=== PATIENT | male | born 1965 | race Caucasian/White ===

== ENCOUNTER 2020-05-30 07:35 | Observation (INO) ==
[2020-05-30 07:44] VITALS: BMI 39.5
[2020-05-30] MEDS ORDERED: ZESTRIL TAB 20 MG PO ONE (08:11)
[2020-05-30] MEDS ORDERED: ZESTRIL TAB 20 MG ONE (08:13)
[2020-05-30 08:33] LABS: BASOPHILS % (AUTO) 0.6 % (0.2-1.0); EOSINOPHILS # (AUTO) 0.2 x10^3/uL (0.0-0.2); EOSINOPHILS % (AUTO) 2.4 % (0.9-2.9); HEMATOCRIT 41.9 % (42.0-54.0); HEMOGLOBIN 14.2 g/dL (13.5-18.0); LYMPHOCYTES # (AUTO) 0.7 X10^3/uL (1.3-2.9); LYMPHOCYTES % (AUTO) 9.8 % (21.0-51.0); MEAN CORPUSCULAR HEMOGLOBIN 27.4 pg (27.0-34.0); MEAN CORPUSCULAR VOLUME 80.7 fL (80.0-100.0); MEAN PLATELET VOLUME 7.4 fL (7.4-11.0); MONOCYTES # (AUTO) 0.3 x10^3/uL (0.3-0.8); MONOCYTES % (AUTO) 3.6 % (0.0-13.0); NEUTROPHILS # (AUTO) 6.3 x10^3/uL (2.2-4.8); NEUTROPHILS % (AUTO) 83.6 % (42.0-75.0); PLATELET COUNT 182 X10^3/uL (150.0-450.0); RED CELL DISTRIBUTION WIDTH 13.6 % (11.6-16.5); WHITE BLOOD COUNT 7.5 X10^3/uL (3.6-10.0)
--- NOTE | 2020-05-30 08:36 | RAD ---
CHEST, 1 VIEWHISTORY: Shortness of breath with cough and body achesStudy: Single view of the chest.Comparison:NoneFindings:Cardiomegaly.No focal consolidations, pleural effusions or pneumothorax. Osseous structures demonstrate no acute abnormality.IMPRESSION:1. No acute cardiopulmonary process.Electronically signed by: KAYLA CANTU (May 30, 2020 08:34:48)
[2020-05-30 08:49] LABS: BLOOD UREA NITROGEN 11 mg/dL (7-18); CARBON DIOXIDE 26.8 mmol/L (21-32); CHLORIDE 105 mmol/L (98-107); COR NA(FOR HYPERGLY) 141 mmol/L (136-145); CREATININE 1.34 mg/dL (0.70-1.30); SODIUM 141 mmol/L (136-145); TROPONIN I < 0.02 ng/mL (0-1.5); eGFR NON BLACK RACES 59 (>60)
[2020-05-30 08:52] LABS: LACTIC ACID 1.2 mmol/L (0.4-2.0)
[2020-05-30 08:53] LABS: ALANINE AMINOTRANSFERASE 37 Units/L (12-78); ALBUMIN 3.5 g/dL (3.4-5.0); ALKALINE PHOSPHATASE 96 Units/L (46-116); ASPARTATE AMINO TRANSFERASE 17 Units/L (15-37); CKMB % 1.5 % (<4); CREATINE KINASE 66 Units/L (39-308); CREATINE KINASE MB < 1.0 ng/mL (0-4.0); TOTAL PROTEIN 7.1 g/dL (6.4-8.2)
--- NOTE | 2020-05-30 09:19 | DR.SOBA ---
HPI Time Seen Time Seen by Provider: 05/30/20 08:10 Primary Care Physician Primary Care Physician: Minesh Kendrick Chief Complaint:: Shortness of breath , body aches, cough, unable to sleep COVID-19 Coronavirus risk:travel/contact w/high risk person: Yes Has patient experienced Coronavirus symptoms: Yes Coronavirus symptoms experienced: Fever, Coughing and Shortness of Breath Source History Provided: Patient Mode of Arrival Mode of Arrival: Ambulatory Timing Onset of Chief Complaint: 05/28/20 PMH PMH Past Medical History: Yes Past Medical History: Dyslipidemia and Hypertension Past Surgical History: Yes Surgical History: Cholecystectomy and Neurosurgery Past Surgical History Comment: hernia repair, shoulder surgery Family History History of Family Medical Conditions: Yes Family Medical History: Hypertension Social History Does patient currently use any type of tobacco product: Yes Have you used tobacco products in the last 12 months: Yes Type of Tobacco Use: Smokeless Does any household member use tobacco: No Alcohol Use: None Lives With: Spouse Lives Where: Home Travel Risk Coronavirus risk:travel/contact w/high risk person: Yes Has patient experienced Coronavirus symptoms: Yes Coronavirus symptoms experienced: Fever, Coughing and Shortness of Breath Infectious screening In the last 2 months have you had wt loss of >10#?: NO Have you had fever, night sweats or hemotysis?: No Have you traveled outside the country in the last 6 months?: No Isolation: Standard ROS Review of Systems Constitutional: See HPI, Chills, Malaise, Weakness and Fatigue Eyes: No Symptoms Reported and See HPI; negative Blurred Vision and Diplopia ENTM: See HPI and Nose Congestion; negative Ear Pain, Nose Discharge and Throat Pain Respiratoy: See HPI, Non-Productive Cough, Short of Breath and Wheezing Cardiovascular: See HPI, Chest Pain, Edema and Palpitations Gastrointestinal/Abdominal: See HPI, Abdominal Pain, Constipation, Nausea and Vomiting; negative Diarrhea Genitourinary: No Symptoms Reported, See HPI, Dysuria, Frequency and Hematuria Neurological: See HPI, Headache and Weakness; negative Dizziness Musculoskeletal: See HPI, Back Pain and Muscle Pain Integumentary: No Symptoms Reported and See HPI; negative Change in Color and Juandice Hematologic/Lymphatic: No Symptoms Reported and See HPI; negative Easy Bruising and Swollen Glands Endocrine: No Symptoms Reported and See HPI; negative Increased Thirst, Increased Urine and Decreased Appetite Psychiatric: No Symptoms Reported and See HPI All Other Systems: Reviewed and Negative PE Vital Signs Vitals: Temperature 99 F Pulse Rate 92 Respiratory Rate 27 Blood Pressure 143/66 O2 Sat by Pulse Oximetry 96 General Limitations: No Limitations General Appearance: Alert and In No Apparent Distress Head Head Exam: Normal Inspection and Atraumatic Eyes Eye exam: Normal Appearance and PERRL; negative Scleral Icterus and Conjunctival Injection ENT ENT Exam: Normal Exam, Normal Oropharynx, Normal External Ear Exam and TM's Normal Bilaterally Neck Neck Exam: Normal Inspection and Trachea Midline; negative Tenderness and Lymphadenopathy Chest Chest Inspection: Normal Inspection and Symmetric Chest Wall Rise; negative Tenderness Respiratory Respiratory Exam: Normal Lung Sounds Bilat and Respiratory Distress; negative Accessory Muscle Use and Chest Wall Tenderness Respiratory Exam: Bilateral: Wheezing and Bilateral: Rhonchi and Lower: Wheezing Cardiovascular Cardiovascular Exam: Normal Rhythm, Tachycardia and Normal Heart Sounds; negat ever Systolic Murmur and Diastolic Murmur Abdominal Exam Abdominal Exam: Normal Inspection, Normal Bowel Sounds and Soft; negative Tenderness Extremities Extremities Exam: Normal Inspection and Normal Capillary Refill; negative Tenderness, Edema and Calf Tenderness Back Back Exam: Normal Inspection and Tenderness; negative (R) CVA Tenderness and (L) CVA Tenderness Neurologic Neurological Exam: Alert, Oriented X3 and CN II-XII Intact; negative Motor Sensory Deficit Psychiatric Psychiatric Exam: Normal Affect and Normal Mood Skin Skin Exam: Warm, Dry, Intact and Normal Color MDM Differential Diagnosis Differential Diagnosis: Bronchitis, CHF, Hyponatremia, Mycardial Infarction, Pneumonia, Pneumothorax, Pulmonary embolism, Respiratory Insufficiency and URI COURSE Treatment Treatment: SEE ORDERS. Education/Counseling Education/Counseling: Patient Educated On: Diagnosis ROR Labs Reviewed Laboratory Results Reviewed?: Yes Result Diagrams: 05/30/20 08:18 05/30/20 08:18 Laboratory: WBC 7.5 X10^3/uL (3.6-10.0) 05/30/20 08:18 RBC 5.20 X10^6/uL (4.7-6.0) 05/30/20 08:18 Hgb 14.2 g/dL (13.5-18.0) 05/30/20 08:18 Hct 41.9 % (42.0-54.0) L 05/30/20 08:18 MCV 80.7 fL (80.0-100.0) 05/30/20 08:18 MCH 27.4 pg (27.0-34.0) 05/30/20 08:18 MCHC 34.0 g/dL (33.0-35.0) 05/30/20 08:18 RDW 13.6 % (11.6-16.5) 05/30/20 08:18 Plt Count 182 X10^3/uL (150.0-450.0) 05/30/20 08:18 MPV 7.4 fL (7.4-11.0) 05/30/20 08:18 Neut % (Auto) 83.6 % (42.0-75.0) H 05/30/20 08:18 Lymph % (Auto) 9.8 % (21.0-51.0) L 05/30/20 08:18 [place] % (Auto) 3.6 % (0.0-13.0) 05/30/20 08:18 Eos % (Auto) 2.4 % (0.9-2.9) 05/30/20 08:18 Baso % (Auto) 0.6 % (0.2-1.0) 05/30/20 08:18 Neut # (Auto) 6.3 x10^3/uL (2.2-4.8) H 05/30/20 08:18 Lymph # (Auto) 0.7 X10^3/uL (1.3-2.9) L 05/30/20 08:18 [place] # (Auto) 0.3 x10^3/uL (0.3-0.8) 05/30/20 08:18 Eos # (Auto) 0.2 x10^3/uL (0.0-0.2) 05/30/20 08:18 Baso # (Auto) 0.0 X10^3/uL (0.0-0.1) 05/30/20 08:18 Absolute Nucleated RBC 0.0 /100WBC 05/30/20 08:18 D-Dimer 709 ng/mL (0-400) H* 05/30/20 08:18 Sample Site Rrad 05/30/20 09:20 ABG pH 7.440 (7.35-7.45) 05/30/20 09:20 ABG pCO2 43.0 mmHg (35.0-45.0) 05/30/20 09:20 ABG pO2 83.0 mmHg (80.0-100.0) 05/30/20 09:20 ABG HCO3 29.2 mmol/L (22-26) H 05/30/20 09:20 ABG O2 Saturation 97.0 % (90-100) 05/30/20 09:20 ABG Base Excess 4.5 mmol/L (-2.0-2.0) H 05/30/20 09:20 Dheeraj Test Pos 05/30/20 09:20 A-a Gradient 13.0 mmHg 05/30/20 09:20 FiO2 21.0 05/30/20 09:20 Blood Gas Comments Lorena well-sd 05/30/20 09:20 Sodium 141 mmol/L (136-145) 05/30/20 08:18 Corrected Sodium 141 mmol/L (136-145) 05/30/20 08:18 Potassium 3.5 mmol/L (3.5-5.1) 05/30/20 08:18 Chloride 105 mmol/L (98-107) 05/30/20 08:18 Carbon Dioxide 26.8 mmol/L (21-32) 05/30/20 08:18 BUN 11 mg/dL (7-18) 05/30/20 08:18 Creatinine 1.34 mg/dL (0.70-1.30) H 05/30/20 08:18 Est GFR (MDRD) Af Amer > 60 (>60) 05/30/20 08:18 Est GFR (MDRD) Non-Af 59 (>60) 05/30/20 08:18 Glucose 114 mg/dL (65-99) H 05/30/20 08:18 Lactic Acid 1.2 mmol/L (0.4-2.0) 05/30/20 08:18 Calcium 8.0 mg/dL (8.5-10.1) L 05/30/20 08:18 Corrected Calcium TNP 05/30/20 08:18 Ferritin 337 ng/mL (26-388) 05/30/20 08:18 Total Bilirubin 0.60 mg/dL (0.2-1.0) 05/30/20 08:18 AST 17 Units/L (15-37) 05/30/20 08:18 ALT 37 Units/L (12-78) 05/30/20 08:18 Alkaline Phosphatase 96 Units/L (46-116) 05/30/20 08:18 Creatine Kinase 66 Units/L (39-308) 05/30/20 08:18 CK-MB (CK-2) < 1.0 ng/mL (0-4.0) 05/30/20 08:18 CK/CKMB % Calc 1.5 % (<4) 05/30/20 08:18 Troponin I < 0.02 ng/mL (0-1.5) 05/30/20 08:18 C-Reactive Protein 12.70 mg/L (0-3.0) H 05/30/20 08:18 B-Natriuretic Peptide < 5.0 pg/mL (0-79) 05/30/20 08:18 Total Protein 7.1 g/dL (6.4-8.2) 05/30/20 08:18 Albumin 3.5 g/dL (3.4-5.0) 05/30/20 08:18 Globulin 3.6 g/dL (2.5-4.5) 05/30/20 08:18 Albumin/Globulin Ratio 1.0 Ratio (1.1-2.1) L 05/30/20 08:18 SARS-CoV-2 (PCR) Negative (NEGATIVE) 05/30/20 10:52 XRAY XRAY Interpreted by: Radiologist (REPORT NOTED AND DISCUSSED WITH PATIENT.) EKG Rate: 87 Avery: Normal Rhythm: NSR Block: None Hypertrophy: None ST: Old, Inf, Ant and Infarct Opioid Opioid Risk Tool Age ([place] box if 16-45): No History of Preadolescent Sexual Abuse: No Total: 0 Total Score Risk Category: Low Risk Copyright: Sam GARRIDO predicting aberrant behaviors Diagnosis Discharge Problem: Pneumonia, Acute respiratory distress Instructions Forms: Excuse From Work Precautions for COVID19 Patient Portal Social Distancing
[2020-05-30] MEDS ORDERED: SOLU-Medrol 125 MG VIAL IVP ONE (09:20)
[2020-05-30] MEDS ORDERED: DUONEB 0.5 MG/3 MG (3 mL) NEB ONE ×2 (09:20→10:14)
[2020-05-30] MEDS ORDERED: SOLU-Medrol 125 MG VIAL ONE (09:22)
[2020-05-30 09:30] LABS: ABG ALLEN TEST POS; ABG BASE EXCESS 4.5 mmol/L (-2.0-2.0); ABG HCO3 29.2 mmol/L (22-26)
--- NOTE | 2020-05-30 10:08 | CT ---
CTA CHESTCLINICAL INDICATION: Shortness of breath and body achesPROCEDURE: Non gated axial images of the chest were obtained with intravenous contrast according to pulmonary embolism protocol. MIPS were reconstructed Dose reduction techniques including Automated Exposure Control (AEC) and adjustment of mA and kV were utlized.COMPARISON:NoneFINDINGS:No evidence of a pulmonary embolism to the level of the segmental pulmonary arteries.The heart is normal in size . No pericardial effusion . No suspicious mediastinal or axillary lymph nodes. Subtle ground-glass in the lungs bilaterally. No focal consolidations, pleural effusions or pneumothorax .Airways are patent . No suspicious pulmonary nodules or masses .Limited images of the upper abdomen are unremarkable.No aggressive osseous lesions.IMPRESSION:1. No evidence of pulmonary embolism.2. Subtle bilateral ground-glass for which early atypical infection include viral etiologies cannot be excludedElectronically signed by: KAYLA CANTU (May 30, 2020 10:06:34)
[2020-05-30] MEDS ORDERED: ROCEPHIN VIAL 1 GRAM 1 G in NS 100 ML IV + SPIKE MINIBAG* 100 ML IV ONE (11:14)
[2020-05-30] MEDS ORDERED: NS 100 ML IV + SPIKE MINIBAG* 100 ML IV ONE (11:16)
[2020-05-30] MEDS ORDERED: ROCEPHIN VIAL 1 GRAM ONE (11:16)
[2020-05-30] MEDS ORDERED: NS 250 ML IV 250 ML IV ONE (11:16)
[2020-05-30] MEDS ORDERED: TUSSIONEX PENNKINETIC SUSP PO PRN (15:19)
[2020-05-30] MEDS: FORTAZ or TAZICEF VIAL INJ 1 G in NS 100 ML IV + SPIKE MINIBAG* 100 ML IV SCH ×3 (16:07→21:36)
[2020-05-30] MEDS: NS 1/2 1000 ML IV 1,000 ML IV SCH (16:07)
[2020-05-30] MEDS: LEVAQUIN PREMIX IV 750 MG 750 MG/150 ML BAG IV SCH (16:08)
[2020-05-30] MEDS ORDERED: NS 1/2 1000 ML IV 1,000 ML IV ONE (16:12)
[2020-05-30] MEDS: ROBITUSSIN DM PO SCH ×3 (16:23→21:36)
[2020-05-30] MEDS: DUONEB 0.5 MG/3 MG (3 mL) NEB SCH ×2 (16:30→20:15)
[2020-05-30] MEDS ORDERED: DUONEB 0.5 MG/3 MG (3 mL) NEB SCH (17:00)
[2020-05-30] MEDS: PULMICORT NEB TX 0.5 MG NEB SCH (20:15)
[2020-05-30] MEDS ORDERED: TYLENOL 325 MG TAB PO ONE (20:43)
[2020-05-30] MEDS: TYLENOL 325 MG TAB PO PRN (21:36)
[2020-05-31 04:29] LABS: ABG BASE EXCESS 2.4 mmol/L (-2.0-2.0); ABG HCO3 27.2 mmol/L (22-26)
[2020-05-31 04:30] LABS: ABG ALLEN TEST POS
[2020-05-31] MEDS: FORTAZ or TAZICEF VIAL INJ 1 G in NS 100 ML IV + SPIKE MINIBAG* 100 ML IV SCH ×3 (05:06→21:21)
[2020-05-31 05:13] LABS: BASOPHILS % (AUTO) 0.1 % (0.2-1.0); HEMATOCRIT 39.2 % (42.0-54.0); HEMOGLOBIN 13.3 g/dL (13.5-18.0); LYMPHOCYTES # (AUTO) 0.5 X10^3/uL (1.3-2.9); LYMPHOCYTES % (AUTO) 5.6 % (21.0-51.0); MEAN CORPUSCULAR HEMOGLOBIN 27.6 pg (27.0-34.0); MEAN CORPUSCULAR HGB CONC 33.9 g/dL (33.0-35.0); MEAN CORPUSCULAR VOLUME 81.3 fL (80.0-100.0); MONOCYTES # (AUTO) 0.3 x10^3/uL (0.3-0.8); MONOCYTES % (AUTO) 3.3 % (0.0-13.0); PLATELET COUNT 195 X10^3/uL (150.0-450.0); RED BLOOD COUNT 4.82 X10^6/uL (4.7-6.0); RED CELL DISTRIBUTION WIDTH 13.5 % (11.6-16.5); WHITE BLOOD COUNT 9.9 X10^3/uL (3.6-10.0)
[2020-05-31 05:22] LABS: ALANINE AMINOTRANSFERASE 29 Units/L (12-78); ALBUMIN 3.3 g/dL (3.4-5.0); ALKALINE PHOSPHATASE 81 Units/L (46-116); ASPARTATE AMINO TRANSFERASE 8 Units/L (15-37); BLOOD UREA NITROGEN 17 mg/dL (7-18); CALCIUM 8.2 mg/dL (8.5-10.1); CARBON DIOXIDE 26.9 mmol/L (21-32); CHLORIDE 105 mmol/L (98-107); COR CA(FOR HYPOALB) 8.8 mg/dL (8.5-10.1); COR NA(FOR HYPERGLY) 141 mmol/L (136-145); CREATININE 1.22 mg/dL (0.70-1.30); SODIUM 140 mmol/L (136-145); eGFR NON BLACK RACES > 60 (>60)
[2020-05-31 06:04] LABS: BAND NEUTROPHILS % 2 % (0-10); PLATELET MORPHOLOGY COMMENT NORMAL (NORMAL)
--- NOTE | 2020-05-31 06:24 | RAD ---
HISTORYShortness of breathSTUDYChest AP [id number]/2020FINDINGSThe heart is enlarged. No definite congestive heart failure is noted. The lungs are hypoinflated. Perihilar subsegmental atelectasis is present on the right. No pleural effusions are identified. Bony thorax is unremarkable.IMPRESSIONCardiomegaly without congestive heart failureNo definite infiltratesPerihilar subsegmental atelectasis on the rightElectronically signed by: NATHAN HADDAD (May 31, 2020 06:23:07)
[2020-05-31] MEDS: NS 1/2 1000 ML IV 1,000 ML IV SCH ×3 (06:34→21:35)
[2020-05-31] MEDS: DUONEB 0.5 MG/3 MG (3 mL) NEB SCH ×2 (09:05→12:27)
[2020-05-31] MEDS: PULMICORT NEB TX 0.5 MG NEB SCH ×2 (09:05→20:30)
[2020-05-31] MEDS: VSL#3 PO SCH (09:25)
[2020-05-31] MEDS: ROBITUSSIN DM PO SCH ×4 (09:25→21:21)
[2020-05-31] MEDS: LEVAQUIN PREMIX IV 750 MG 750 MG/150 ML BAG IV SCH (09:25)
[2020-05-31] MEDS: LOVENOX INJ 40 MG SYR SC SCH (10:43)
[2020-05-31] MEDS ORDERED: NS 1/2 1000 ML IV 1,000 ML IV ONE ×2 (16:07→20:56)
[2020-05-31] MEDS: TYLENOL 325 MG TAB PO PRN (16:15)
[2020-05-31] MEDS ORDERED: XOPENEX 1.25 MG/3 ML NEBULE NEB ONE (16:24)
[2020-05-31] MEDS: XOPENEX 1.25 MG/3 ML NEBULE NEB SCH (17:00)
--- NOTE | 2020-05-31 22:10 | DR.H&P ---
H&P - History & Physical for Day of: H&P Date: 05/30/20 - Chief Complaint Chief Complaint: SOB, COUGH, FEVER, BODY ACHES, INABILITY TO SLEEP - History of Present Illness History of Present Illness: IS A 54 YEAR OLD PATIENT OF . HE PRESENTED TO THE ER WITH COMPLAINTS OF SHORTNESS OF BREATH, BODY ACHES, COUGH, FEVER, AND INABILITY TO SLEEP. SYMPTOMS REPORTEDLY STARTED THREE DAYS PRIOR AND HAVE PROGRESSIVELY GOTTEN WORSE. HIS PMH INCLUDES: DYSLIPIDEMIA, HYPERTENSION, CHOLECYSTECTOMY, NEUROSURGERY, HERNIA REPAIR, AND SHOULDER SURGERY. ON ARRIVAL TO THE ER, VITALS WERE: 99.0-91-20-97%-172/87. LABS WERE OBTAINED. ABNORMAL LAB VALUES INCLUDE THE FOLLOWING: HCT 41.9, D-DIMER 709, CREATININE 1.34, GLUCOSE 114, CALCIUM 8.0, CRP 12.70. CARDIAC ENZYMES WIHTIN NORMAL LIMITS. ABG OBTAINED AND REVEALED: PH 7.440, PC02 43.0, P02 83.0, HC03 29.2, 02 SATURATION 97.0, BASE EXCESS 4.5. COVID RAPID SWAB WAS NEGATIVE. A SEND OUT SWAB WAS COLLECTED. BLOOD AND SPUTUM CULTURES WERE SENT OUT. A CHEST XRAY WAS OBTAINED AND REVEALED: NO ACUTE CARDIOPULMONARY PROCESS. EKG REVEALED: SINUS RHYTHM WITH HR 87. A CHEST CTA WAS OBTAINED AND REVEALED: 1. No evidence of pulmonary embolism. 2. Subtle bilateral ground-glass for which early atypical infection include viral etiologies cannot be excluded. APPARENTLY, DURING THE COURSE OF HIS ER STAY, HE WAS NOTED TO BE WINDED WHEN SPEAKING AND WAS ONLY ABLE TO SAY A FEW WORDS AT THE TIME WITHOUT HAVING TO STOP TO CATCH HIS BREATH. HE WAS ADMITTED TO THE HOSPITAL FOR FURTHER EVALUATION AND TREATMENT OF PNEUMONIA, RESPIRATORY DISTRESS, R/O COVID-19. HE WAS GIVEN ROCEPHIN 1G IV X 1, SOLU-MEDROL 125MG IV X 1, DUONEB X 1, AND ZESTRIL 20MG PO X 1. HE WAS STARTED ON 1/2NS AT [facility], LEVAQUIN 750MG IV DAILY, FORTAZ 1G IV Q8H, TUSSIONEX 5ML PO Q12H PRN, PULMICORT NEBS BID, XOPENEX NEBS Q6H, LOVENOX, ROBITUSSIN 10ML PO QID. WE WILL REVIEW HIS HOME MEDICATIONS. OTHERWISE, WE WILL FOLLOW UP WITH AM LABS AND CHEST XRAY AND CONTINUE TO MONITOR. - Past Medical History Past Medical History: Hypertension, Dyslipidemia - Past Surgical History Surgical History: Cholecystectomy, Neurosurgery, Ortho Surgery Additional Surgical History: HERNIA REPAIR - Family History Family Medical History: Hypertension - Social History Does patient currently use any type of tobacco product: Yes Have you used tobacco products in the last 12 months: Yes Type of Tobacco Use: Smokeless Does any household member use tobacco: No Alcohol Use: None Drug Use: None - Medications Home Medications: No Known Drug Allergies Allergy (Verified 05/30/20 07:44) CONTINUE taking the following medications aspirin 325 mg PO DAILY 05/30/20 [History] diltiazem HCl [Cardizem CD] 180 mg PO DAILY 05/30/20 [History] esomeprazole magnesium [Nexium] 40 mg PO DAILY 05/30/20 [History] gabapentin 300 mg PO TID 05/30/20 [History] lisinopril 20 mg PO DAILY 05/30/20 [History] simvastatin [Zocor] 20 mg PO HS 05/30/20 [History] tamsulosin [Flomax] 0.4 mg PO HS 05/30/20 [History] - Review of Systems Constitutional: See HPI, Fever, Chills, Weakness Eyes: No Symptoms Reported ENT: No Symptoms Reported Respiratory: See HPI, Cough, Shortness of Breath, Wheezing Cardiovascular: No Symptoms Reported Gastrointestinal: No Symptoms Reported Genitourinary: No Symptoms Reported Musculoskeletal: No Symptoms Reported Skin: No Symptoms Reported Neurological: Weakness - Physical Exam Vital Signs: Temperature 98.3 F Pulse Rate 88 Respiratory Rate 23 Blood Pressure 160/87 O2 Sat by Pulse Oximetry 93 Oriented: Normal Eyes: Normal Ear: Normal Nose: Normal Throat: Normal Respiratory: Rhonchi Throughout, Wheezes Throughout Cardiovascular: Normal : Normal Auscultation: Bowel Sounds: Normal Palpation: Normal Tenderness: Normal Skin: Normal Musculoskeletal: Normal Psychiatric: Normal Mood Description: Calm Affect: Normal Speech Pattern: Clear - Assessment/Plan (1) Pneumonia Qualifiers: Pneumonia type: due to unspecified organism Laterality: bilateral Lung location: unspecified part of lung Qualified Code(s): J18.9 - Pneumonia, unspecified organism Status: Acute Plan: ADMIT, 1/2NS AT [facility], LEVAQUIN 750MG IV DAILY, FORTAZ 1G IV Q8H, TUSSIONEX 5ML PO Q12H PRN, PULMICORT NEBS BID, XOPENEX NEBS Q6H, ROBITUSSIN 10ML PO QID, LOVENOX, SUPPLEMENTAL OXYGEN. (2) Acute respiratory distress Status: Acute - Allergies Allergies/Adverse Reactions: Allergies Allergy/AdvReac Type Severity Reaction Status Date / Time No Known Drug Allergies Allergy Verified 05/30/20 07:44
[2020-06-01] MEDS: XOPENEX 1.25 MG/3 ML NEBULE NEB SCH ×3 (00:05→11:45)
[2020-06-01 05:07] LABS: BASOPHILS % (AUTO) 0.3 % (0.2-1.0); EOSINOPHILS # (AUTO) 0.1 x10^3/uL (0.0-0.2); EOSINOPHILS % (AUTO) 0.9 % (0.9-2.9); HEMATOCRIT 39.1 % (42.0-54.0); HEMOGLOBIN 13.2 g/dL (13.5-18.0); LYMPHOCYTES # (AUTO) 1.1 X10^3/uL (1.3-2.9); LYMPHOCYTES % (AUTO) 13.8 % (21.0-51.0); MEAN CORPUSCULAR HEMOGLOBIN 27.8 pg (27.0-34.0); MEAN CORPUSCULAR HGB CONC 33.7 g/dL (33.0-35.0); MEAN CORPUSCULAR VOLUME 82.4 fL (80.0-100.0); MEAN PLATELET VOLUME 7.9 fL (7.4-11.0); MONOCYTES # (AUTO) 0.4 x10^3/uL (0.3-0.8); MONOCYTES % (AUTO) 4.6 % (0.0-13.0); NEUTROPHILS # (AUTO) 6.4 x10^3/uL (2.2-4.8); NEUTROPHILS % (AUTO) 80.4 % (42.0-75.0); PLATELET COUNT 186 X10^3/uL (150.0-450.0); RED BLOOD COUNT 4.74 X10^6/uL (4.7-6.0); RED CELL DISTRIBUTION WIDTH 13.7 % (11.6-16.5)
[2020-06-01 05:23] LABS: ALANINE AMINOTRANSFERASE 34 Units/L (12-78); ALBUMIN 3.2 g/dL (3.4-5.0); ALKALINE PHOSPHATASE 75 Units/L (46-116); ASPARTATE AMINO TRANSFERASE 20 Units/L (15-37); BLOOD UREA NITROGEN 19 mg/dL (7-18); CALCIUM 7.9 mg/dL (8.5-10.1); CARBON DIOXIDE 25.2 mmol/L (21-32); CHLORIDE 108 mmol/L (98-107); COR CA(FOR HYPOALB) 8.5 mg/dL (8.5-10.1); CREATININE 1.12 mg/dL (0.70-1.30); SODIUM 143 mmol/L (136-145); TOTAL PROTEIN 6.7 g/dL (6.4-8.2); eGFR NON BLACK RACES > 60 (>60)
[2020-06-01] MEDS: FORTAZ or TAZICEF VIAL INJ 1 G in NS 100 ML IV + SPIKE MINIBAG* 100 ML IV SCH (05:53)
--- NOTE | 2020-06-01 06:32 | RAD ---
HISTORYSOBSTUDYCHEST, 1 [id number]/2020FINDINGSThe trachea is midline. The cardiac silhouette is mildly enlarged.. The lungs are clear without focal infiltrate or effusion. Pulmonary vasculature within normal limits. No pleural effusion or pneumothorax. Is the bony thorax is unremarkable.IMPRESSIONMild cardiomegalyNo active cardiopulmonary diseaseElectronically signed by: Michele Darby (Jun 01, 2020 06:31:45)
[2020-06-01] MEDS: TYLENOL 325 MG TAB PO PRN (07:05)
[2020-06-01] MEDS: LEVAQUIN PREMIX IV 750 MG 750 MG/150 ML BAG IV SCH (09:00)
[2020-06-01] MEDS: LOVENOX INJ 40 MG SYR SC SCH (09:01)
[2020-06-01] MEDS: ROBITUSSIN DM PO SCH (09:02)
[2020-06-01] MEDS: VSL#3 PO SCH (09:02)
[2020-06-01] MEDS: PULMICORT NEB TX 0.5 MG NEB SCH (09:30)
[2020-06-01 14:17] VITALS: BP 160/76
== END 2020-06-01 12:35 | disposition home or self-care (01) ==
LOC: ER 07:35 → ICU 07:35
PROVIDERS: ADMIT Internal Medicine; ATTEND Internal Medicine
CPT/HCPCS: 36415; 36600; 71010; 71045; 71275; 80053; 82550; 82553; 82728; 82803; 83605; 83880; 84484; 85025; 85378; 86140; 87040; 87070; 87205; 87635; 93005; 94640; 96360; 96361; 96365; 96372; 96374; 96375; 99284; A4216; A4222; G0378; J0696; J0713; J1650; J1956; J2930; J3490; J7050; J7620; J7626